=== PATIENT | female | born 1970 | race Caucasian/White ===

== ENCOUNTER 2018-11-20 03:43 | Outpatient (CLI) | payer BC, SELFPAY ==
--- NOTE | 2018-11-20 09:30 | DI.MAMMO_ITS ---
SYMPTOMS/DIAGNOSIS: SCREENING, Z12.31 MAMMOGRAMS: Mammograms were interpreted according to the usual protocol including computer analysis with CAD system, tomosynthesis and C view imaging. The breast tissue is heterogeneously radiodense, which lowers the sensitivity of the study. There is no dominant mass. There are no suspicious calcifications and there has been no significant interval change when compared with prior images. SUMMARY: No evidence of malignancy, category 1. Yearly screening mammography is recommended. Breast density category C. MQSA ASSESSMENT OF FINDINGS: Negative. Category 1. Patient will receive a letter notifying them of these results. Bi-RADS category C. The breasts are heterogeneously dense, which may obscure small masses.
== END 2018-11-20 04:03 ==
PROVIDERS: PCP Family Medicine; Visit Provider Nurse Practitioner Family
DX: Z12.31 Encounter for screening mammogram for malignant neoplasm of breast (principal)
CPT/HCPCS: 77063; 77067

== ENCOUNTER 2019-07-25 01:55 | Outpatient (CLI) | payer BC, SELFPAY ==
--- NOTE | 2019-07-25 08:19 | DI.US_ITS ---
EXAM: US PELVIS TRANSVAGINAL CLINICAL HISTORY: Heavy periods, L sided pelvic pain, R10.2, N92.0 TECHNIQUE: Ultrasound performed using standard protocol. COMPARISON: ABDOMEN ULTRASOUND (P) from 03/11/2015 FINDINGS: The uterus measures 12.5 centimeters long by 9.0 centimeters AP x 7.8 centimeters transverse. There are several hypoechoic masses in the uterus consistent with fibroids. The largest is in the fundus p osteriorly and measures 7.3 x 6.6 x 7.4 centimeters. There is a 1.1 x 1.2 x 1.1 centimeter submucosa l uterine fibroid. The endometrial stripe is within normal limits at 9.6 millimeters. The right ovary measures 2 x 1.1 x 1.0 centimeters. The left ovary measures 3.2 x 1.3 x 1.3 centimet ers. Ovaries are unremarkable with normal blood flow. There is no evidence of hydronephrosis. A trace amount of free fluid is seen in the cul-de-sac. Thi s is likely physiologic. IMPRESSION: Fibroid uterus.
== END 2019-07-25 02:15 ==
PROVIDERS: PCP Family Medicine; Visit Provider Nurse Practitioner Women's Health
DX: N92.0 Excessive and frequent menstruation with regular cycle (principal); R10.2 Pelvic and perineal pain; D25.9 Leiomyoma of uterus, unspecified
CPT/HCPCS: 76830; 76856

== ENCOUNTER 2019-10-04 01:53 | Outpatient (CLI) | payer BC, SELFPAY ==
[2019-10-04 09:37] LABS: Abs Immature Grans 0.01 k/cumm (0.0-0.09); Absolute Basophil Count 0.04 k/cumm (0.0-0.2); Absolute Eosinophil Count 0.05 k/cumm (0.0-0.7); Absolute Lymphocyte Count 1.88 k/cumm (1.2-3.4); Absolute Monocyte Count 0.38 k/cumm (0.11-0.7); Absolute Neutrophil Count 6.14 k/cumm (1.2-6.7); Basophils % 0.5; Eosinophils % 0.6; HCT 40.6 % (36.0-46.0); HGB 12.9 g/dL (12.0-15.5); Immature Grans % 0.1 %; Lymphocytes % 22.1; Mean Corp. HGB Concentration 31.8 g/dL (32.0-36.0); Mean Corpuscular Hemoglobin 26.7 pg (27.0-33.0); Mean Corpuscular Volume 83.9 fL (80-95); Mean Platelet Volume 8.7 fL (8.0-11.0); Monocytes % 4.5; Neutrophils % 72.2; Platelet Count 439 x1000/uL (130-400); RBC 4.84 m/cumm (4.00-5.20); RBC Distribution Width 14.5 % (11.7-14.6)
[2019-10-04 10:45] LABS: Iron 71 ug/dL (50-170); Total Iron Binding Capacity 444 ug/dL (250-450); Transferrin Sat 16 % (15-50)
[2019-10-04 11:21] LABS: ALT 19 U/L (14-59); AST 13 U/L (15-37); Albumin 3.4 g/dL (3.4-5.0); Alkaline Phosphatase 42 U/L (46-116); Anion Gap 8.2 mmol/L (3-11); BUN 13 mg/dL (7-18); Bilirubin, Total 0.5 mg/dL (0.2-1.0); CO2 27.8 mmol/L (21.0-32.0); CREATININE 0.75 mg/dL (0.55-1.02); Calcium 8.4 mg/dL (8.5-10.1); Calculated LDL 107 mg/dL (<100); Chloride 104 mmol/L (98-107); Cholesterol 166 mg/dL (<200); Ferritin 7 ng/mL (8-252); Glucose 86 mg/dL (74-106); HDL Cholesterol 46 mg/dL (40-60); Potassium 4.4 mmol/L (3.5-5.1); Sodium 140 mmol/L (136-145); Total Protein 6.6 g/dL (6.4-8.2); Triglyceride 69 mg/dL (<150); Vitamin B12 545 pg/mL (193-986)
[2019-10-04 11:22] LABS: Folate > 20.0 ng/mL (8.6-20.0)
[2019-10-06 11:25] LABS: FSH 2.7 mIU/mL (See Note); LH 0.5 mIU/mL (See Note)
[2019-10-08 12:53] LABS: 25-Hydroxy D Total 46 ng/mL; 25-Hydroxy D2 <4.0 ng/mL; 25-Hydroxy D3 46 ng/mL
== END 2019-10-04 02:13 ==
PROVIDERS: PCP Family Medicine; Visit Provider Naturopath
DX: R53.83 Other fatigue (principal); D25.9 Leiomyoma of uterus, unspecified; Z13.220 Encounter for screening for lipoid disorders
CPT/HCPCS: 36415; 80053; 80061; 82306; 82607; 82728; 82746; 83001; 83002; 83540; 83550; 85025

== ENCOUNTER 2020-07-06 00:43 | Outpatient (CLI) | payer BC, SELFPAY ==
--- NOTE | 2020-07-06 07:15 | DI.US_ITS ---
EXAM: US PELVIS TRANSVAGINAL CLINICAL HISTORY: check size of uterine fibroids,DYSMENORRHEA,N94.6,D25.1,D25.0. TECHNIQUE: Transabdominal and transvaginal pelvic ultrasound was performed using standard protocol. COMPARISON: US US PELVIS TRANSVAGINAL from 07/25/2019 FINDINGS: KIDNEYS: Kidneys are symmetric in size. No evidence of renal calculi. No evidence of hydronephrosis. No renal mass or cyst identified. UTERUS: Position: Anteverted. Size: 12.6 long by 8.9 AP by 9.5 transverse cm Endometrium: 0.4 cm. Normal for patient's menstrual status. Myometrium: Uterine fibroids are present. The largest measures 7.8 x 6.9 x 8.1 cm. This compares to 7.3 x 6.6 x 7.4 cm. The previously measured submucosal fibroid measures 1.1 x 1.1 x 1.4 cm. This c ompares to 1.1 x 1.2 x 1.1 cm. Cervix: Unremarkable. OVARIES: Right: 2.8 x 1.6 x 1.6 cm Cyst or mass: Small follicular cysts. Left: 2.8 x 2.2 x 2.0 cm Cyst or mass: Small follicular cysts. DOPPLER: Color: Symmetric and uniform flow to both ovaries. No hyperemia. CUL-DE-SAC: Free fluid: None. Other: None. IMPRESSION: 1. Normal sonographic appearance of the kidneys. 2. Multiple uterine fibroids. Please see the findings above for complete details. 3. Unremarkable bilateral ovaries. DATA REPOSITORY:
== END 2020-07-06 01:03 ==
PROVIDERS: PCP Family Medicine; Visit Provider Obstetrics & Gynecology Gynecology
DX: D25.9 Leiomyoma of uterus, unspecified (principal); N94.6 Dysmenorrhea, unspecified; D25.0 Submucous leiomyoma of uterus
CPT/HCPCS: 76830; 76856

== ENCOUNTER 2020-08-09 02:59 | Outpatient (CLI) | payer BC, SELFPAY ==
[2020-08-10 19:01] LABS: COVID-19 RT-PCR UVMMC Result Negative (Negative)
== END 2020-08-09 03:19 ==
PROVIDERS: PCP Family Medicine; Visit Provider Family Medicine
DX: Z11.59 Encounter for screening for other viral diseases (principal)
CPT/HCPCS: U0003

== ENCOUNTER 2020-10-08 01:55 | Outpatient (CLI) | payer BC, SELFPAY ==
[2020-10-08 11:33] LABS: HCT 40.5 % (36.0-46.0); HGB 13.1 g/dL (11.2-15.7); MCH 28.4 pg (27.0-33.0); MCHC 32.3 % (32.0-36.0); MCV 87.7 fL (80-95); MPV 8.6 fL (8.0-11.0); Platelet Count 308 10^3/uL (130-400); RBC 4.62 10^6/uL (3.93-5.22); RDW 12.7 % (11.7-14.6); RDW-SD 40.5 fL; WBC 7.07 10^3/uL (4.4-10.8)
[2020-10-08 13:12] LABS: Anion Gap 8.4 mmol/L (3-11); CO2 27.6 mmol/L (21.0-32.0); Chloride 104 mmol/L (98-107); HCG Quant, Pregnancy 1 mIU/mL (1-3); Potassium 4.2 mmol/L (3.5-5.1); Sodium 140 mmol/L (136-145)
== END 2020-10-08 01:56 | disposition home or self-care (01) ==
LOC: LBO 01:55
PROVIDERS: Visit Provider Obstetrics & Gynecology Gynecology
DX: N93.9 Abnormal uterine and vaginal bleeding, unspecified (principal); D25.9 Leiomyoma of uterus, unspecified; Z01.818 Encounter for other preprocedural examination; Z01.812 Encounter for preprocedural laboratory examination
CPT/HCPCS: 36415; 80051; 85027; 86850; 86900; 86901; 84702

== ENCOUNTER 2020-10-08 02:35 | Outpatient (CLI) | payer BC, SELFPAY ==
[2020-10-09 13:58] LABS: COVID-19 RT-PCR UVMMC Result Negative (Negative)
== END 2020-10-08 02:36 | disposition home or self-care (01) ==
LOC: LBO 02:35
PROVIDERS: Visit Provider Obstetrics & Gynecology Gynecology
DX: Z20.822 Contact with and (suspected) exposure to COVID-19 (principal); Z01.818 Encounter for other preprocedural examination
CPT/HCPCS: U0003

== ENCOUNTER 2020-10-13 14:07 | Observation (INO) | payer BC, SELFPAY ==
[2020-10-13] VITALS (16 sets, daily range): BP systolic 85–118; BP diastolic 45–78; PULSE 67–100; RESP 12–18; TEMP 36.3–37.2; O2SAT 96–100
[2020-10-13] MEDS: Lactated Ringers 1,000 ML 125 ML IV ×4 (08:20→23:26)
[2020-10-13] MEDS: ceFAZolin 2 GM/50 ML BAG IVPB (10:40)
[2020-10-13] MEDS: Bupivacaine 0.25% Pres-Free 30 ML VIAL (10:50)
--- NOTE | 2020-10-13 11:17 | UTER_PTH ---
PATIENT: Nadia Saldaña LOC: U#:[id number] AGE/SX: 49/F ROOM: 215 RE10/13/[address]: Shayy Luis : 1970 BED: A DIS: 10/14/2020 SPEC #: [id number] RECD: 10/13/20 17:30 STATUS: JOSUE REQ #: [id number] YURIY: 10/13/20 11:[address]: Shayy Luis DEPT: Surgical Specimen RECD BY: Shakira Beltran ENTERED: 10/13/20 17:32 SP TYPE: UTER OTHR DR: Jennifer Doan APRN Tissues: 1 - UTERUS W OR W/O OVARIES(NOT TUMOR/PROLAPSE) Procedures: GROSS AND MICRO LEVEL 5 Comments: [id number]
--- NOTE | 2020-10-13 19:23 | W.PM.OP ---
Date of service: 10/13/20 Time of Service: 19:23 Operative Note Operative Note DATE OF PROCEDURE: 10/13/20 PRE-OP DIAGNOSIS: menorrhagia, fibroid uterus POST-OP DIAGNOSIS: same PROCEDURE: Laparoscopic assisted vaginal hysterectomy with bilateral salpingectomy and bladder cystoscopy SURGEON: Shayy Luis ANESTHESIA TYPE: General LMA/ETT and Spinal Refer to Anesthesia Record ESTIMATED BLOOD LOSS: 200 PATHOLOGY: other (Uterus, fallopian tubes and cervix to pathology) COMPLICATIONS: None Patient was transported to: PACU Patient's condition: stable Indications: 49yo female with a hx of menorrhagia and submucosal and intramural on pelvic ultrasound who has failed medical therapy. Findings: Enlarged uterus with solitary fibroid distorting fundus and lower uterine segment. Cecum displaced to patient's L sidewall secondary to uterus occupying posterior cul de sac. Normal appearing adnexa bilaterally. Both ureters were visible and remote from the operative field. Brisk efflux of Methylene Blue dye from both ureteral orifices noted at cystoscopy Procedure Description: Patient was taken to the operating room where she was placed in the dorsal supine position and general endotracheal anesthesia was administered without difficulty. She was then placed in the dorsal lithotomy position in [facility] stirrups with SCDs in place. She received 2 g of Ancef. After being prepped and draped in the usual sterile fashion a surgical timeout was performed. Aranda catheter was placed to gravity drainage. A bivalve speculum was placed in the vagina the anterior lip of the cervix was grasped with a single-tooth tenaculum. A Xenia uterine manipulator was inserted into the uterine cavity and the distal balloon was filled with 5cc of sterile Normal Saline. It was left in place for the laparosopic portion of the procedure. Attention was then turned to the patient's abdomen. The umbilical fold was infiltrated with quarter percent Marcaine without epinephrine. A scalpel was then used to make a 12mm skin incision in the vertical fold. Two penetrating towel clips were used to tent up the skin and through the periumbilical incision a Veres needle was introduced into the abdomen and intra-abdominal placement confirmed by a drop in the intra-abdominal pressure. Once a pneumoperitoneum was established a 12 mm Visiport was placed through the umbilical incision under direct visualization and intra-abdominal placement confirmed by use of the laparoscope. Patient was then placed in Trendelenburg position. At two sites approximately 6 cm diagonally from the umbilical incision the skin was infiltrated with quarter percent Marcaine without epinephrine, incised with a scalpel and two 5 mm lower ports were placed under direct visualization. After careful inspection of the pelvis and determining that the course of both ureters were distant from the operative site a LigaSure electrocautery device was used to sequentally clamp, cauterize and incise the left fallopian tube from from the mesosalpinx to the left uterine cornua. The left broad ligament was then sequentially clamped, cauterized and the both the left round ligament and ovarian suspensory ligament were transected and the pedicles noted to be hemostatic. The insertion of the left uterine artery/venous complex into the left lower uterine segment was clamped and cauterized in 3 contiguous locations. The Ligasure device was then used to incise the vesico-uterine peritoneum off of the lower uterine segment and retract the bladder away from the lower uterine segment. Attention was then turned to the contralateral round ligament which was clamped, cauterized and transected with the Ligasure device. This allowed access to the remaining broad ligament which was clamped, cauterized and transected in a sequential fashion. The uterine vessel complex insertions at the lower uterine segement were not as prominent as on the left lower uterine segment and were easily cauterized. Decision was made to proceed with the vaginal portion of the case. Laparoscopic instruments were removed from the ports , the pneumoperitoneum was reduced, and the area was covered with sterile drape. A weighted vaginal speculum was placed in the vagina and the anterior posterior lips of the cervix were grasped with Eagle clamps. The body of the cervix was infiltrated with 1% lidocaine with dilute Epinphrine The epithelium of the cervix was incised in a circumferential fashion using Bovie electrocautery. The posterior cul-de-sac was entered sharply and through the incision a long billed weighted speculum was placed. The left and right uterosacral ligament complexes were clamped,transected, and suture-ligated which was held long. This allowed sufficient mobilization of the vesicouterine fascia to identify a tissue plane and enter the anterior cul-de-sac sharply. Through this incision a curved [place] retractor was inserted and used to retract bladder away from the operative field. The remaining right and left broad ligaments were sequentially clamped, cauterized, and transected and the specimen was delivered and passed off of the operative field. The peritoneum was reapproximated with a pursestring suture using 2-0 Vicryl and the vaginal cuff was reapproximated in a vertical fashion with a running suture of 0 Vicryl with care taken to reapproximate the uterosacral ligament complex to the vaginal epithelium with the previously placed 0 Vicryl sutures. Instruments removed from the vagina and attention was again turned to the abdomen where a pneumoperitoneum was reestablished and the pelvis inspected using the laparoscope. The vaginal cuff was intact and hemostatic as were the other pedicles. A bladder cystoscopy was then performed using normal saline and intravenous methylene blue. The bladder was smooth walled with no intracavitary filling defects. Both ureteral orifices were patent with brisk E flux of blue dye noted from each orifice. The instruments were then removed from the port sites, the pneumoperitoneum deflated and the ports removed. The fascia of the periumbilical skin incision was closed with interrupted suture of 0 Vicryl. The skin of the port site incisions were reapproximated with a subcuticular closure of 4-0 Vicry and and covered with skin glue. Patient was placed in the dorsal supine position awakened extubated and transported recovery area in stable condition. All sponge lap needle counts correct x2.
--- NOTE | 2020-10-13 19:32 | NUR.NOTE ---
Nursing Note: 1524 pt transferred from pacu to med-surg floor via hospital bed, BP soft but will continue to monitor. belongings put into room.
[2020-10-13] MEDS: Docusate Sodium 100 MG CAP PO (19:59)
[2020-10-13] MEDS: Ketorolac 30 MG/ML VIAL IVP (20:00)
[2020-10-13] MEDS: Normal Saline Flush 10 ML SYR IV (20:01)
[2020-10-14] MEDS: Normal Saline Flush 10 ML SYR IV ×2 (01:37→13:43)
[2020-10-14] MEDS: Ketorolac 30 MG/ML VIAL IVP ×3 (01:37→13:42)
[2020-10-14 03:26] VITALS: BP 103/49; PULSE 61; RESP 17; TEMP 38; O2SAT 97
[2020-10-14 03:48] VITALS: TEMP 36.6
[2020-10-14 03:50] VITALS: BP 100/60
[2020-10-14] MEDS: Lactated Ringers 1,000 ML 125 ML IV (06:20)
[2020-10-14 07:05] LABS: HCT 25.7 % (36.0-46.0); HGB 8.5 g/dL (11.2-15.7); MCH 28.4 pg (27.0-33.0); MCHC 33.1 % (32.0-36.0); MPV 9.2 fL (8.0-11.0); Platelet Count 246 10^3/uL (130-400); RBC 2.99 10^6/uL (3.93-5.22); RDW-SD 40.5 fL; WBC 9.03 10^3/uL (4.4-10.8)
[2020-10-14 07:32] VITALS: BP 100/63; PULSE 74; RESP 22; TEMP 37.4; O2SAT 97
[2020-10-14] MEDS: Docusate Sodium 100 MG CAP PO (07:55)
--- NOTE | 2020-10-14 09:53 | PDOC.CMIN ---
- If Service Date Differs Date of service: 10/14/20 Time of Service: 09:53 Care Management Initial Assess REASON FOR HOSPITALIZATION:: Laparoscopic vaginal hysterectomy PAST MEDICAL HISTORY/PAST SURGICAL HISTORY:: Medical History (Updated 10/05/20 @ 17:19 by Shayy Luis MD). Abnormal uterine bleeding (AUB). Dairy product intolerance. Dysmenorrhea. 07/2019. For several months. Will begin continuous active OCPs. Encounter for pre-operative examination. Fibroid uterus. 07/2019 7 cm fundal fibroid. Small submucosal fibroid. Surgical History (Updated 06/05/18 @ 14:33 by [employer] [place]). Tonsillectomy (~1990) PREVIOUS FUNCTIONAL STATUS/SOCIAL/FAMILY SUPPORTS:: Nadia lives in a single family home in [place] with her Steven and 2 daughters. 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 Nadia is independent at baseline and does not receive any community services. CURRENT FUNCTIONAL STATUS:: Nadia was sitting on her bed, fully dressed, when CM met with her. She was pleasant and smiling and announced that she was going home. She asked CM to check with her pharmacy to see if her prescription had been sent over and CM informed her that it had been sent and was ready for pickup. Nadia denied the need for any services. ADVANCE DIRECTIVES:: none on file Has patient been provided with info about the portal/API?: Yes Did the patient sign up for the portal?: Yes (previously) CODE STATUS:: Full Code INSURANCE COVERAGE / FINANCIAL ISSUES:: BS CURRENT HOME/COMMUNITY SERVICES/EQUIPMENT:: Sharon lives in [place], [place] with her Brad. They have 2 children. 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 POTENTIAL DISCHARGE NEEDS:: Follow up with [facility], PCP and discharge plan of care PATIENT/FAMILY EDUCATION NEEDS:: Discharge plan, limitations, follow up plan, Ask Me Three TRANSPORTATION:: via private vehicle with PLAN:: Sharon will be discharged home with no new services. She will follow up with her PCP, [facility] and discharge plan of care and transport with her .
--- NOTE | 2020-10-14 11:11 | W.PM.DS.N ---
Date of service: 10/14/20 Time of Service: 11:13 DS: Diagnosis Discharge Diagnosis (1) History of laparoscopic-assisted vaginal hysterectomy: Status: Acute (2) Hx of bilateral salpingectomy: Status: Acute Discharge Plan Disposition Patient Disposition: HOME Condition: Improving Discharge Details Reason For Visit: LAPAROSCOPIC ASSISTED VAGINAL HYSTERECTOMY WITH SA Admit Date/Time: 10/13/20 14:07 Admit Provider: Shayy Luis Attending Provider: Shayy Luis Primary Care Provider: Jennifer Doan Hospital Course Hospital Course: Patient was admitted the morning of surgery and underwent the above-stated procedure without complications. She was discharged home on postop day #1 tolerating a regular diet voiding spontaneously. Her pain was controlled with nonsteroidal anti-inflammatories. Pathology is currently pending. The plan is to have the patient follow-up in 2 weeks for discussion regarding pathology results. I will offer her prescription for limited number of Percocet in addition to encouraging her to use nonsteroidal anti-inflammatories while at home. Home Meds and New Rx's Prescriptions: No Action cholecalciferol (vitamin D3) 4,000 unit capsule 4,000 unit PO DAILY RF: 0 Probiotic 15 billion cell capsule, sprinkle 1 cap PO DAILY RF: 0 Daily Multiple 1 EACH tablet 1 tab-cap PO DAILY RF: 0 oxycodone-acetaminophen [Percocet] 5-325 mg tablet 1 tab PO Q6H MDD 4 PRN (Reason: pain) Qty: 5 RF: 0 Discharge Instructions Instructions: Laparoscopic Hysterectomy (DC) Additional Instructions: No driving until you follow-up appointment in 2 weeks. Stand Alone Forms: [facility] Post Gynecology Surgery, Nursing Discharge Form Referrals: Shayy Luis MD [ [facility] STAFF PHYSICIAN] - 11/02/20 2:40 pm Activity:: Activity as Tolerated Equipment/Supplies:: No Equipment Needed Diet:: As Tolerated Discharge Orders Discharge Orders: Discharge Order (Routine); Ordered 10/14/20 Ordered By: Shayy Luis DS: Summary Time Spent with Patient providing and/or coordinating discharge services: Less than 30 minutes Status at Discharge Functional status at discharge: independent ambulation Overall status at discharge: patient is back to baseline Mental Status: mental status grossly normal Speech and Movement: speech and movement normal Mood: congruent mood Affect: normal affect Exam Const General: no acute distress Nutritional Appearance: average body habitus Orientation: alert, awake and oriented x3 Neck Neck: normal visual inspection Resp Effort & Inspection: normal respiratory effort Auscultation: clear to auscultation bilaterally Cardio Rate: regular rate Rhythm: regular rhythm GI Inspection: scar (Trocar sites clean dry and intact, skin glue in place small amount of ecchy) Palpation: soft, no masses and nontender General: deferred Skin General skin exam: no rashes or lesions noted Extrem General: normal to inspection and full ROM Psych Appearance: grossly normal Mental Status: mental status grossly normal Speech and Movement: speech and movement normal Mood: congruent mood Affect: normal affect Attitude: cooperative Thought Process: normal Thought Content: normal Insight: insight good Judgment: judgment good DS: Data Vitals/I&O Vitals and I&O: Vital Signs Temperature 99.3 F 10/14/20 07:32 Temperature Source Tympanic 10/14/20 07:32 Pulse 74 10/14/20 07:32 Pulse Rhythm Regular 10/14/20 07:55 Respiratory Rate 22 10/14/20 07:32 Respiratory Effort Non-Labored 10/14/20 07:55 Respiratory Depth Normal 10/14/20 07:55 Respiratory Pattern Normal 10/14/20 07:55 Blood Pressure 100/63 10/14/20 07:32 Pulse Oximetry 97 10/14/20 07:32 Respiratory End-tidal CO2 45 10/13/20 15:05 Oxygen Delivery Method Room Air 10/14/20 07:32 Oxygen Flow Rate 0 10/14/20 07:32 Pain Level 2 10/14/20 07:32 Comment 10/14/20 03:50 Intake & Output 10/13/20 10/13/20 10/14/20 11:59 23:59 11:59 Intake Total 50 2458.167 2409.167 / 2459.167 2291.667 / 2291.667 Output Total 1050 / 1050 1250 / 1250 Balance 50 14086125.028 5708.167 / 7710.053 2320.667 / 1041.667 Weight 121 lb 7.595 oz Intake: IV 19784118.904 6058.167 / 9278.856 0523.667 / 1811.667 Oral 480 / 480 480 / 480 Output: Urine 850 / 850 1250 / 1250 Estimated Blood Loss 200 / 200 Other: Urine Color Yellow Green Green Indigo Urine Appearance Clear Clear Clear Comment Pale blue urine light blue color in the output. Voiding Methods Toilet Data Completed and Pending Labs on day of discharge: Labs from last 24 hours 10/14/20 06:25 WBC 9.03 RBC 2.99 L Hgb 8.5 L Hct 25.7 L MCV 86.0 MCH 28.4 MCHC 33.1 RDW 13.0 Plt Count 246 MPV 9.2 PFSH Medical History Abnormal uterine bleeding (AUB) Dairy product intolerance Dysmenorrhea 07/2019. For several months. Will begin continuous active OCPs. Encounter for pre-operative examination Fibroid uterus 07/2019 7 cm fundal fibroid. Small submucosal fibroid. Surgical History (Updated 10/14/20 @ 11:15 by Shayy Luis MD) History of laparoscopic-assisted vaginal hysterectomy Hx of bilateral salpingectomy Tonsillectomy (~1990) Family History Father Prostate cancer Mother COPD (chronic obstructive pulmonary disease) Social History (Updated 08/06/19 @ 16:21 by Shayy Luis MD) Smoking/Tobacco Use Status: Never Smoking risk assessment performed?: Yes Alcohol Intake: current Alcohol Intake frequency: a few times a week Alcohol type: wine Drug use: Never Substance use type: does not use Housing: other Details: DwayneCarmen Harris-16yo, Misty-13yo Number of Children: 2 Education Level: college Details: BS in biology 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
[2020-10-14 11:21] VITALS: BP 106/61; PULSE 80; RESP 19; TEMP 37.2; O2SAT 99
--- NOTE | 2020-10-14 15:13 | CHAPLAIN ---
I had a brief visit with Nadia. She told me that she and her were by Fr. Jael Hedrick, the original [facility] director of corporate sales here. Nadia said she will likely be discharged today.
--- NOTE | 2020-10-14 17:53 | CMDISCH_ITS ---
- If Service Date Differs Date of service: 10/14/20 Time of Service: 17:53 LACE Index Scoring Tool - Questions: Length of Stay (in days): 1 Acuity (Admit via E.D.?): No E.D. Visits: 0 - Answers: Total Score: 1 Risk of Readmission: Low Risk Care Management Discharge Reason for Hospitalization: Laparoscopic vaginal hysterectomy Discharge Plan: Sharon will be discharged home with no new services. She will follow up with her PCP, TECHNICAL WRITING LEAD/MGR and discharge plan of care and transport with her Patient/Family Education Needs: Discharge plan, limitations, follow up plan, Ask Me Three
== END 2020-10-14 15:28 | disposition home or self-care (01) ==
LOC: MS 15:47
PROVIDERS: Admitting Provider Obstetrics & Gynecology Gynecology; Visit Provider Obstetrics & Gynecology Gynecology
PROC: 0UT9FZZ Resection of Uterus, Via Natural or Artificial Opening With Percutaneous Endoscopic Assistance (ICD-10-PCS; CPT 58554; principal; 2020-10-13 09:00)
DX: D25.9 Leiomyoma of uterus, unspecified (principal); N92.0 Excessive and frequent menstruation with regular cycle
CPT/HCPCS: 58554; 52000; 36415; 85027; NC; 88307; G0378; J0690; J1100; J1885; J2001; J2250; J2405; J2704; J3010

== ENCOUNTER 2021-01-26 01:26 | Outpatient (CLI) | payer BC, SELFPAY ==
--- NOTE | 2021-01-26 08:00 | DI.MAMMO_ITS ---
Exam(s) MAMMO SCREENING EXAM: MAMMO SCREENING CLINICAL HISTORY: screening, Z12.39 TECHNIQUE: Bilateral full field digital CC and MLO mammographic images were obtained with 3D tomosyn thesis and utilizing computer aided detection (CAD). COMPARISON: Available for comparison. FINDINGS: Masses/Architectural Distortion: None seen. Microcalcifications: No suspicious pleomorphic-type are seen. Skin Thickening/Nipple Retraction: None. IMPRESSION: 1. No significant interval change with no specific features of malignancy noted. 2. Unless there is more urgent need, screening mammography is recommended, as per [employer] guidelines. BI-RADS Category 1 - Negative Breast Density - Category C - Heterogeneously dense Breast density category C or D implies that the patient has dense breast tissue. Dense breast tissue is very common and is not abnormal but dense breast tissue can make it harder to find cancer on a ma mmogram. Also, dense breast tissue may increase their breast cancer risk. This information about the result of the mammogram report was provided to the patient to raise their awareness. Use this report when you speak with the patient about their risks for breast cancer, which includes their family hist ory. At that time, you may recommend for more screening tests (Ultrasound or MRI) as they might be us eful based on their risk. A negative radiographic report should not delay biopsy if a dominant or clinically suspicious mass is present. Up to ten percent of cancers are not identified on mammography. A negative report may reinforce clinical impression. Adenosis and dense breasts may obscure an underlying neoplasm. False positive reports average 6 to 10%. Patient will receive a letter notifying them of these results.
== END 2021-01-26 01:46 ==
PROVIDERS: Visit Provider Obstetrics & Gynecology Gynecology
DX: Z12.31 Encounter for screening mammogram for malignant neoplasm of breast (principal)
CPT/HCPCS: 77063; 77067

== ENCOUNTER 2021-12-21 01:14 | Outpatient (CLI) | payer BC, SELFPAY ==
[2021-12-21 12:31] LABS: HCT 42.4 % (36.0-46.0); HGB 13.7 g/dL (11.2-15.7)
[2021-12-21 12:53] LABS: Iron 168 ug/dL (50-170); Total Iron Binding Capacity 326 ug/dL (250-450); Transferrin Sat 52 % (15-50)
[2021-12-21 12:59] LABS: Ferritin 32 ng/mL (8-252)
== END 2021-12-21 01:15 | disposition home or self-care (01) ==
LOC: LOS 01:14
DX: D50.9 Iron deficiency anemia, unspecified (principal)
CPT/HCPCS: 36415; 82728; 83540; 83550; 85014; 85018

== ENCOUNTER 2022-09-13 01:19 | Outpatient (CLI) | payer BC, SELFPAY ==
--- NOTE | 2022-09-13 15:15 | DI.MAMMO_ITS ---
Exam(s) MAMMO SCREENING EXAM: MAMMO SCREENING CLINICAL HISTORY: screening TECHNIQUE: Mammograms were interpreted according to the usual protocol including computer analysis w [employer] CAD system, tomosynthesis and C-view imaging. COMPARISON: 2013 through 2020 FINDINGS: The breasts are composed of heterogeneously dense fibroglandular densities, Breast Density category C . No suspicious masses or suspicious microcalcifications are seen. Multiple scattered punctate, benign -appearing calcifications are noted bilaterally. No skin thickening or abnormal axillary lymph nodes are seen. There has been no significant change from prior exams. IMPRESSION: BI-RADS Cat 2 - Benign Findings Yearly screening mammography is recommended. Breast Density Category C, heterogeneously Dense. The mammogram demonstrates the patient's breast tissue is dense. Dense breast tissue is very common a nd is not abnormal but dense breast tissue can make it harder to find cancer on a mammogram. Also, de nse breast tissue may increase breast cancer risk. This information about the result of the mammogram report was provided to the patient to raise their awareness. Use this report when you speak with the patient about their risks for breast cancer, which includes their family history. At that time, you may recommend additional screening tests (Ultrasound or MRI) as they might be useful based on their r isk. A negative radiographic report should not delay biopsy if a dominant or clinically suspicious mass is present. Up to ten percent of cancers are not identified on mammography. A negative report may reinforce clinical impression. Adenosis and dense breasts may obscure an underlying neoplasm. False positive reports average 6 to 10%.
== END 2022-09-13 01:39 ==
LOC: DI 01:20
PROVIDERS: PCP Nurse Practitioner Family; Visit Provider Obstetrics & Gynecology
DX: Z12.31 Encounter for screening mammogram for malignant neoplasm of breast (principal)
CPT/HCPCS: 77063; 77067

== ENCOUNTER 2022-12-13 02:57 | Outpatient (CLI) | payer BC, SELFPAY ==
[2022-12-13 08:46] LABS: HCT 45.7 % (36.0-46.0); HGB 15.2 g/dL (11.2-15.7); MCH 28.8 pg (27.0-33.0); MCHC 33.3 % (32.0-36.0); MCV 87 fL (80-95); MPV 8.4 fL (8.0-11.0); Platelet Count 269 10^3/uL (130-400); RBC 5.27 10^6/uL (3.93-5.22); RDW 12.4 % (11.7-14.6); RDW-SD 39.6 fL; WBC 6.16 10^3/uL (4.4-10.8)
[2022-12-13 09:29] LABS: Anion Gap 7.5 mmol/L (3-11); BUN 13 mg/dL (7-18); CO2 29.5 mmol/L (21.0-32.0); CREATININE 0.9 mg/dL (0.55-1.02); Calcium 9.1 mg/dL (8.5-10.1); Calculated LDL 129 mg/dL (<100); Chloride 102 mmol/L (98-107); Cholesterol 209 mg/dL (<200); Ferritin 48 ng/mL (8-252); Glucose 93 mg/dL (74-106); HDL Cholesterol 70 mg/dL (40-60); Potassium 3.9 mmol/L (3.5-5.1); Sodium 139 mmol/L (136-145); Triglyceride 54 mg/dL (<150)
[2022-12-13 09:37] LABS: Vitamin D 25 Total 32.9 ng/mL (30-100)
[2022-12-13 09:49] LABS: Folate > 20.0 ng/mL (8.6-20.0)
[2022-12-13 09:52] LABS: Iron 121 ug/dL (50-170); Total Iron Binding Capacity 310 ug/dL (250-450)
== END 2022-12-13 02:58 | disposition home or self-care (01) ==
LOC: LBO 02:57
PROVIDERS: PCP Nurse Practitioner Family; Visit Provider Nurse Practitioner Family
DX: D50.9 Iron deficiency anemia, unspecified (principal); K90.9 Intestinal malabsorption, unspecified; Z13.220 Encounter for screening for lipoid disorders; Z13.1 Encounter for screening for diabetes mellitus
CPT/HCPCS: 36415; 80048; 80061; 82306; 85027; 82728; 82746; 83540; 83550

== ENCOUNTER 2023-02-16 01:29 | Outpatient (CLI) | payer BC, SELFPAY ==
[2023-02-19 11:40] LABS: Lyme Ab w Rflx to Lyme Confirm Negative (Negative)
[2023-02-20 17:34] LABS: Anaplasma phagocytophilum Negative (Negative); B. miyamotoi PCR Negative (Negative); Babesia divergens/MO-1 Negative (Negative); Babesia duncani Negative (Negative); Babesia microti Negative (Negative); Ehrlichia chaffeensis Negative (Negative); Ehrlichia ewingii/canis Negative (Negative); Ehrlichia muris eauclairensis Negative (Negative)
== END 2023-02-16 01:30 | disposition home or self-care (01) ==
PROVIDERS: PCP Nurse Practitioner Family; Visit Provider Nurse Practitioner Family
DX: M25.50 Pain in unspecified joint (principal); D50.9 Iron deficiency anemia, unspecified; E73.9 Lactose intolerance, unspecified
CPT/HCPCS: 36415; 87798; 86618

== ENCOUNTER → 2023-05-31 00:53 | Outpatient (CLI) | payer BC, SELFPAY ==
--- NOTE | 2023-05-31 10:00 | DI.RAD_ITS ---
Exam(s) XR SACRUM COCCYX XR LUMBAR SPINE COMPLETE EXAM: XR LUMBAR SPINE COMPLETE and XR sacrum coccyx CLINICAL HISTORY: no improvement with PT, low back pain,m54.50. TECHNIQUE: 2D digital imaging was performed of the sacrum/coccyx and lumbar spine. Nine images were obtained. AP, lateral, right oblique, left oblique and L5-S1 spot views were obtained. COMPARISON: No priors for comparison. FINDINGS: BONES: No fracture or destructive lesion. Endplate osteophytes are seen at multiple levels of the lum bar spine. There are degenerative changes seen in the facet joints. DISKS: There is disc space narrowing at L2-1 L2 and L5-S1. ALIGNMENT: Lumbar spinal alignment is within normal limits. No spondylolysis or spondylolisthesis. T he sacroiliac joints show no evidence of erosions or ankylosis. Mild degenerative changes are seen i n the sacroiliac joints. SOFT TISSUE: Surgical clips are seen in the pelvis. IMPRESSION: 1. No acute fracture or subluxation. 2. Mild degenerative changes in the lumbar spine and sacroiliac joints. DATA REPOSITORY: RADIATION DOSE DELIVERED:
--- NOTE | 2023-05-31 10:05 | DI.RAD_ITS ---
Exam(s) XR HAND RT COMPLETE EXAM: XR HAND RT COMPLETE CLINICAL HISTORY: no improvement with PT,pain, m25.50. TECHNIQUE: 2D digital imaging was performed of the right hand. Three images were obtained. AP, late ral and oblique views were obtained. COMPARISON: CR RIGHT INDEX FINGER from 07/19/2011 FINDINGS: BONES: No acute fracture is present. No bony destructive lesion is seen. JOINTS: No dislocation present. The joint spaces are well maintained. SOFT TISSUE: Normal. IMPRESSION: Unremarkable radiographs of the right hand. DATA REPOSITORY: RADIATION DOSE DELIVERED:
== END ==
PROVIDERS: PCP Nurse Practitioner Family; Visit Provider Nurse Practitioner Family
DX: M51.36 Other intervertebral disc degeneration, lumbar region (principal); M25.511 Pain in right shoulder
CPT/HCPCS: 72110; 72220; 73130

== ENCOUNTER → 2023-06-28 01:06 | Outpatient (CLI) | payer BC, SELFPAY ==
--- NOTE | 2023-06-28 13:58 | DI.MRI_ITS ---
Exam(s) MR LUMBAR SPINE WO EXAM: MR LUMBAR SPINE WO CLINICAL HISTORY: no improvement with PT M54.50 LOW BACK PAIN. TECHNIQUE: Multiplanar multisequence MRI of the Lumbar spine was performed. COMPARISON: CR XR LUMBAR SPINE COMPLETE from 05/31/2023 CR XR SACRUM COCCYX from 05/31/2023 FINDINGS: Conus medullaris is at normal level. There is no evidence of conus mass nor subjacent clumping of in trathecal nerve roots to suggest arachnoiditis. The distal thecal sac appears unremarkable.There is no evidence of Tarlov intrasacral cysts nor other significant findings within the sacral canal Bones:There are no fractures nor ominous osseous lesions in the lumbar vertebral bodies and visualize d sacrum. The small intraosseous hemangioma noted in the S2 segment. With respect to the individual levels... T12-L1: Unremarkable L1-2: This level exhibits disc space narrowing anteriorly; less so posteriorly. However, there is po sterior annular bulging and a superimposed central-left paracentral disc protrusion at this level whi ch extends posteriorly 3 mm and is approximately 1 cm wide. This indents the anterior thecal sac. T he actual osseous dimensions of the canal are within normal limits and this disc protrusion does not extend into the exiting neural foramen on either side. There is no foraminal stenosis on either side at this level. Facet joints appear unremarkable. There are anterior osteophytes evident at this le king and Modic type 1 sub endplate marrow edema signal is noted anteriorly at this level in the L1 and L2 vertebral bodies. L2-3: This level exhibits no significant disc space narrowing. There is asymmetric left-sided annula r bulging in the floor of the exiting left neural foramen at this level. There is no prominent disc herniation and the exiting neural foramen is not significantly narrowed on either side at this level and there is also no evidence of central canal stenosis. Facet joints unremarkable. L3-4: Normal disc height and signal. There is mild asymmetric left of center annular bulging at this level without a dominant disc herniation. Central canal dimensions are lower normal. There is no s ignificant foraminal stenosis at this level. Facet joints unremarkable. L4-5: This level exhibits normal disc height and signal. There is symmetrical annular bulging at thi s level which mildly indents the anterior thecal sac at this level. There is no prominent disc herni ation. Central canal dimensions are lower normal. There is mild annular bulging in the floor of the exiting left neural foramen but no foraminal stenosis on either side at this level. Also no promine nt facet arthropathy. L5-S1: This level exhibits chronic advanced uniform disc space narrowing some Modic type sub endplate marrow changes noted at this level. There is broad relatively symmetrical annular bulging at this l evel which flattens the anterior thecal sac. Central canal dimensions are lower normal. With regard s to the exiting neural foramina, there is annular bulging into the floor of the exiting neural selena victor hugo bilaterally with mild-moderate foraminal stenosis bilaterally at this level. There is mild bilat eral facet arthropathy. Soft tissues: paraspinal soft tissues appear unremarkable. IMPRESSION: 1. Multilevel findings as described individually above. 2. Central-left paracentral disc herniation at L1-2 level; an element of bilateral foraminal stenosis at L5-S1 level; with other findings as above. 3. There is no prominent central canal stenosis. DATA REPOSITORY:
--- NOTE | 2023-06-28 13:58 | DI.MRI_ITS ---
Exam(s) MR UPPER EXTREMITY RT WO EXAM: MR UPPER EXTREMITY RT WO CLINICAL HISTORY: increased pain, no improvement with PT M79.641 PAIN RT HAND. TECHNIQUE: Multiplanar multisequence MRI was performed. CONTRAST MATERIAL: None COMPARISON: Plain films 31 May 2012 FINDINGS: Bones/joints: There is no fracture or contusion. The radiocarpal, intercarpal and carpometacarpal [place] nt spaces are preserved. There are no erosive changes seen. A small cystic area is noted in the 3rd metacarpal head, of doubtful clinical significance. There is no appreciable joint effusion. Ligaments: The TFCC is grossly intact. Both the scapholunate and lunotriquetral ligaments are grossl y intact. Musculoskeletal Structures: The visualized tendons are intact. There is no muscle atrophy. There are no muscular strains seen. The visualized median nerve appears to be within normal limits and is normally located within the car pal tunnel. No abnormal edema within the carpal tunnel. IMPRESSION: Unremarkable MRI of the Right hand.. DATA REPOSITORY:
== END ==
PROVIDERS: PCP Nurse Practitioner Family; Visit Provider Nurse Practitioner Family
DX: M51.26 Other intervertebral disc displacement, lumbar region (principal); M99.63 Osseous and subluxation stenosis of intervertebral foramina of lumbar region; M79.641 Pain in right hand
CPT/HCPCS: 72148; 73218

== ENCOUNTER → 2023-11-28 04:10 | Outpatient (CLI) | payer BC, SELFPAY ==
--- NOTE | 2023-11-28 08:30 | DI.MAMMO_ITS ---
Exam(s) MAMMO SCREENING EXAM: MAMMO SCREENING CLINICAL HISTORY: screening,z12.39. TECHNIQUE: Bilateral full field digital CC and MLO mammographic images were obtained with 3D tomosyn thesis and utilizing computer aided detection (CAD). COMPARISON: Prior mammograms were reviewed. FINDINGS: There has been no significant change in the appearance and distribution of the fibroglandular tissue which is again noted be moderately dense, this somewhat decreasing the sensitivity of the mammogram f or finding hidden underlying lesions. There are numerous punctate benign-appearing microcalcifications in the areas of fibroglandular densi ty in both breasts. There are no new spiculated masses nor malignant appearing microcalcification groups. There is no significant architectural distortion nor skin thickening-retraction. IMPRESSION: Stable benign findings. No radiographic evidence of malignancy. BI-RADS Category 2 - Benign Findings Breast Density - Category C - Heterogeneously dense Breast density Category C or D implies that the patient has dense breast tissue. Dense breast tissue can make it harder to find cancer on a mammogram. Dense breast tissue is also associated with an incr eased risk of breast cancer. This information about the result of the mammogram report was provided to the patient to raise their awareness. Use this report when you speak with the patient about their risks for breast cancer, which includes their family history. At that time, you may recommend additional screening tests (Ultrasoun d or MRI) as these tests may add significant information. A negative radiographic report should not delay biopsy if a dominant or clinically suspicious mass is present. Up to ten percent of cancers are not identified on mammography. A negative report may reinforce clinical impression. Adenosis and dense breasts may obscure an underlying neoplasm. False positive reports average 6 to 10%. Patient will receive a letter notifying them of these results.
== END ==
PROVIDERS: PCP Nurse Practitioner Family; Visit Provider Nurse Practitioner Family
DX: Z12.31 Encounter for screening mammogram for malignant neoplasm of breast (principal); R92.323 Mammographic fibroglandular density, bilateral breasts
CPT/HCPCS: 77063; 77067

== ENCOUNTER 2024-01-19 10:52 | Outpatient (REF) | payer BC, SELFPAY | END 2024-01-19 10:53 | disposition home or self-care (01) | LOC: LBN 10:52 | PROVIDERS: PCP Nurse Practitioner Family; Visit Provider Physician Assistant | DX: J02.9 Acute pharyngitis, unspecified (principal) | CPT/HCPCS: 87070 ==

== ENCOUNTER 2024-01-22 05:01 | Outpatient (CLI) | payer BC, SELFPAY ==
[2024-01-23 11:50] LABS: Lyme Ab w Rflx to Lyme Confirm Negative (Negative)
[2024-01-25 13:11] LABS: Anaplasma phagocytophilum Negative (Negative); B. miyamotoi PCR Negative (Negative); Babesia divergens/MO-1 Negative (Negative); Babesia duncani Negative (Negative); Babesia microti Negative (Negative); Ehrlichia chaffeensis Negative (Negative); Ehrlichia ewingii/canis Negative (Negative); Ehrlichia muris eauclairensis Negative (Negative)
== END 2024-01-22 05:02 | disposition home or self-care (01) ==
PROVIDERS: PCP Nurse Practitioner Family; Visit Provider Nurse Practitioner Family
DX: M25.59 Pain in other specified joint (principal)
CPT/HCPCS: 36415; 87798; 86618

== ENCOUNTER 2024-11-25 21:24 | Outpatient (REF) | payer BC, SELFPAY ==
[2024-11-25 21:40] LABS: HCT 42.5 % (36.0-46.0); HGB 14.3 g/dL (11.2-15.7); MCH 29.3 pg (27.0-33.0); MCHC 33.6 % (32.0-36.0); MCV 87 fL (80-95); MPV 9.3 fL (8.0-11.0); Platelet Count 294 10^3/uL (130-400); RBC 4.88 10^6/uL (3.93-5.22); RDW 12.2 % (11.7-14.6); WBC 7.02 10^3/uL (4.4-10.8)
[2024-11-25 22:00] LABS: ALT 20 U/L (14-59); AST 15 U/L (15-37); Albumin 4.2 g/dL (3.4-5.0); Alkaline Phosphatase 71 U/L (46-116); Anion Gap 10.9 mmol/L (3-11); BUN 14 mg/dL (7-18); Bilirubin, Total 0.5 mg/dL (0.2-1.0); CO2 27.1 mmol/L (21.0-32.0); CREATININE 0.8 mg/dL (0.55-1.02); Calcium 9.5 mg/dL (8.5-10.1); Calculated LDL 93 mg/dL (<100); Chloride 105 mmol/L (98-107); Cholesterol 187 mg/dL (<200); Estimated GFR 88.05 (mL/min/1.73m2); Glucose 90 mg/dL (74-106); HDL Cholesterol 77 mg/dL (>or=50); Sodium 143 mmol/L (136-145); Total Protein 7.1 g/dL (6.4-8.2); Triglyceride 88 mg/dL (<150)
== END 2024-11-25 21:25 | disposition home or self-care (01) ==
LOC: LBN 21:24
PROVIDERS: PCP Nurse Practitioner Family; Visit Provider Nurse Practitioner Family
DX: D50.9 Iron deficiency anemia, unspecified (principal); Z13.220 Encounter for screening for lipoid disorders; R53.83 Other fatigue; Z78.0 Asymptomatic menopausal state
CPT/HCPCS: 80053; 80061; 85027; 84443

== ENCOUNTER 2024-11-28 00:16 | Outpatient (CLI) | payer BC, SELFPAY ==
--- NOTE | 2024-11-28 12:04 | DI.MAMMO_ITS ---
Exam(s) MAMMO SCREENING EXAM: MAMMO SCREENING CLINICAL HISTORY: screening TECHNIQUE: Mammograms were interpreted according to the usual protocol including computer analysis w [id number] CAD system, tomosynthesis and C-view imaging. COMPARISON: 2014 through 2023 FINDINGS: The breasts are composed of heterogeneously dense fibroglandular densities, Breast Density category C . No suspicious masses or suspicious microcalcifications are seen. Benign calcifications are again not ed bilaterally. No skin thickening or abnormal axillary lymph nodes are seen. There has been no significant change from prior exams. IMPRESSION: BI-RADS Category 2 - Benign Findings Yearly screening mammography is recommended. Breast Density Category C, heterogeneously Dense. The mammogram demonstrates the patient's breast tissue is dense. Dense breast tissue is very common a nd is not abnormal but dense breast tissue can make it harder to find cancer on a mammogram. Also, de nse breast tissue may increase breast cancer risk. This information about the result of the mammogram report was provided to the patient to raise their awareness. Use this report when you speak with the patient about their risks for breast cancer, which includes their family history. At that time, you may recommend additional screening tests (Ultrasound or MRI) as they might be useful based on their r isk. A negative radiographic report should not delay biopsy if a dominant or clinically suspicious mass is present. Up to ten percent of cancers are not identified on mammography. A negative report may reinforce clinical impression. Adenosis and dense breasts may obscure an underlying neoplasm. False positive reports average 6 to 10%.
== END 2024-11-28 00:36 ==
LOC: DI 00:16
PROVIDERS: PCP Nurse Practitioner Family; Visit Provider Obstetrics & Gynecology
DX: Z12.31 Encounter for screening mammogram for malignant neoplasm of breast (principal); R92.333 Mammographic heterogeneous density, bilateral breasts; D24.1 Benign neoplasm of right breast; D24.2 Benign neoplasm of left breast
CPT/HCPCS: 77063; 77067

== ENCOUNTER 2024-12-29 02:30 | Outpatient (CLI) | payer BC, SELFPAY ==
--- NOTE | 2024-12-29 08:15 | DI.DEXA_ITS ---
Exam(s) XR DEXA BONE DENSITY W/WO LALO EXAM: XR DEXA BONE DENSITY W/WO LALO CLINICAL HISTORY: screening for osteoporosis in postmenopausal state,z78.0 TECHNIQUE: Routine DEXA evaluation of the lumbar spine, hip, or forearm. COMPARISON: No exams were available for comparison FINDINGS: Performed on a Hologic unit. Lateral image: No compression fracture evident. Lumbar Spine total T-score: -1.3 Hip total T-score:-0.9 Independent reading at the level of the femoral neck yields T-score of -1.7 Forearm total T-score: -1.0 IMPRESSION: Bone mineral density measures in the osteopenia range. Fracture risk is moderate. Note: Any spine fracture indicates 5x risk for subsequent spine fracture and 2x risk for subsequent h ip fracture. World Health Organization criteria for BMD interpretation classify patients: Normal...... T- Score at or above -1.0 Osteopenic... T- Score between -1.0 and -2.5 Osteoporosis... T-Score at or below -2.5
== END 2024-12-29 02:50 ==
LOC: DI 02:30
PROVIDERS: PCP Nurse Practitioner Family; Visit Provider Nurse Practitioner Family
DX: Z78.0 Asymptomatic menopausal state (principal); Z13.820 Encounter for screening for osteoporosis; M85.89 Other specified disorders of bone density and structure, multiple sites
CPT/HCPCS: 77080

== ENCOUNTER 2025-05-08 08:40 | Outpatient (CLI) | payer BC, SELFPAY ==
[2025-05-11 10:35] LABS: Lyme Ab w Rflx to Lyme Confirm Negative (Negative)
== END 2025-05-08 08:41 | disposition home or self-care (01) ==
LOC: LOS 08:40
PROVIDERS: PCP Nurse Practitioner Family; Referring Provider Nurse Practitioner Family; Visit Provider Nurse Practitioner Family
DX: M25.50 Pain in unspecified joint (principal)
CPT/HCPCS: 36415; 87798; 86618

== ENCOUNTER 2025-05-21 20:47 | Outpatient (CLI) | payer BC, SELFPAY ==
[2025-05-24 21:00] LABS: B. miyamotoi PCR Negative (Negative); Babesia divergens/MO-1 Negative (Negative); Ehrlichia muris eauclairensis Negative (Negative)
== END 2025-05-21 20:48 | disposition home or self-care (01) ==
LOC: LBO 20:47
PROVIDERS: PCP Nurse Practitioner Family; Visit Provider Nurse Practitioner Family
DX: M25.50 Pain in unspecified joint (principal)
CPT/HCPCS: 36415; 87798

== ENCOUNTER 2025-06-19 13:06 | Emergency (ER) | payer BC, SELFPAY ==
[2025-06-19 13:08] VITALS: BP 115/82; PULSE 83; RESP 18; TEMP 36.8; O2SAT 98
--- NOTE | 2025-06-19 14:48 | W.ED.GENAD ---
Discharge Plan Disposition Patient Disposition: Home Condition: Stable Discharge Details Clinical Impression: Low back pain Primary Care Provider: Ray Chaudhari ED Provider: Andres Peres Home Meds and New Rx's Prescriptions: New cyclobenzaprine 5 mg tablet 5 mg PO TID PRNQty: 14 0RF No Action estradiol [Estrace] 1 mg tablet 1 mg PO DAILY Qty: 90 3RF multivitamin with iron [Daily Vites/Iron] Tablet 1 tab PO DAILY up4 Probiotics Women's 5 billion cell- 250 mg capsule 1 cap PO DAILY cholecalciferol (vitamin D3) 25 mcg (1,000 unit) capsule 25 mcg PO DAILY Discharge Instructions Instructions: Low Back Pain ED Additional Instructions: Flexeril as directed, this medication may cause drowsiness. [id number] Tylenol and/or Motrin as directed for discomfort. Cool and/or warm compresses every 2 hours for 20 minutes. Gentle massage and/or stretching as tolerated. Please watch for new or worsening symptoms and return to the ER for any concerns. Lastly, please contact your primary care provider on Sunday to discuss your ER visit and ongoing symptoms, updated outpatient MRI of the lumbar spine or referral to youth services specialist may be necessary. Discharge Data Discharge Date/Time-TO BE ENTERED AT DEPARTURE: 06/19/25 15:01 HPI General Mode of arrival: ambulatory. Date/Time Provider Initiated Documentation: 06/19/25 13:22. Limitations to Documentation: no limitations. Information obtained by: patient. History of Present Illness 54 year old F presents to the emergency department with the chief complaint of Low back pain, described as moderate, with intensity rated at 5. Quality is described as aching, and is localized to the back. Patient reports no radiation. Patient started experiencing this day(s) (2) and it has been constant. worse with movement No exacerbating factors reported . Patient notes no other symptoms.. Patient did receive the following treatments prior to arrival, none Related Data Home Medications Medication Instructions Recorded Confirmed multivitamin with iron (Daily 1 tab PO DAILY 06/20/21 06/19/25 Vites/Iron tablet) L.acid,gasseri,plant,rham-B.animalis-cran 1 cap PO DAILY 09/29/24 06/19/25 5 billion cell-250mg capsule (up4 Probiotics Women's) cholecalciferol (vitamin D3) 25 25 mcg PO DAILY 09/29/24 06/19/25 mcg (1,000 unit) capsule estradiol 1 mg tablet (Estrace) 1 mg PO DAILY #90 tabs 12/09/24 06/19/25 Held on 12/30/24. Instructions: Changed by Provider cyclobenzaprine 5 mg tablet 5 mg PO TID PRN #14 tabs 06/19/25 Previous Rx's Medication Instructions Recorded estradiol 1 mg tablet (Estrace) 1 mg PO DAILY #90 tabs 12/09/24 Held on 12/30/24. Instructions: Changed by Provider cyclobenzaprine 5 mg tablet 5 mg PO TID PRN #14 tabs 06/19/25 Allergies Allergy/AdvReac Type Severity Reaction Status Date / Time amoxicillin Allergy Intermediate Skin Rash Verified 06/19/25 13:54 dimenhydrinate (From Allergy Intermediate Skin Rash Unverified 06/19/25 13:54 Dramamine) General Stated Complaint: Orthopedic SHONDA: 3 Review of Systems Constitutional Constitutional: Denies fever(s) and Denies weakness Cardiovascular Cardiovascular: Denies chest pain and Denies dyspnea Respiratory Respiratory: Denies dyspnea Gastrointestinal Gastrointestinal: Denies abdominal pain, Denies fecal incontinence, Denies nausea and Denies vomiting Genitourinary Genitourinary: Denies dysuria and Denies urinary incontinence Musculoskeletal Musculoskeletal: Reports back pain, Denies numbness, Denies radiating pain into limb, Reports stiffness and Denies tingling Integumentary/Breasts Skin/Breast: Denies rash Neurologic Neurologic: Denies numbness, Denies tingling and Denies weakness Exam Const General: cooperative, healthy appearing, comfortable and no acute distress Orientation: alert and awake [facility] Head: normal to inspection, normocephalic and atraumatic Mouth: moist mucous membranes Eyes Conjunctivae: conjunctivae normal Neck Neck: normal visual inspection, full ROM, trachea midline and supple Resp Effort & Inspection: normal respiratory effort and able to speak in complete sentences Cardio Rate: regular rate Rhythm: regular rhythm GI Palpation: soft and nontender Back/Spine/Pelvis Back: no CVA tenderness and back tenderness Other: Skin is without erythema, ecchymosis, or obvious deformity. There is mild right paravertebral soft tissue discomfort. There is no midline discomfort. There is no left lower back discomfort. No discomfort over the SI joint. No discomfort with pelvis compression. Modified straight leg raise does reproduce back discomfort. Skin General skin exam: no rashes or lesions noted Neuro General: patient alert, patient awake, moves all extremities and no focal motor deficits Cognition: normal cognition Speech: speech normal Gait: normal gait Motor: muscle tone normal throughout and strength 5/5 throughout Sensory Exam: no sensory deficits noted Extrem General: normal to inspection, full ROM, capillary refill normal, no calf tenderness and normal gait Psych Appearance: grossly normal Mental Status: mental status grossly normal Course Vital Signs Vital signs: Vital Signs Temperature 36.8 C 06/19/25 13:08 Pulse 83 06/19/25 13:08 Respiratory Rate 18 06/19/25 13:08 Blood Pressure 115/82 06/19/25 13:08 Pulse Oximetry 98 06/19/25 13:08 Temperature 36.8 C 06/19/25 13:08 Temperature Source Oral 06/19/25 13:08 Pulse 83 06/19/25 13:08 Respiratory Rate 18 06/19/25 13:08 Blood Pressure 115/82 06/19/25 13:08 Pulse Oximetry 98 06/19/25 13:08 Oxygen Delivery Method Room Air 06/19/25 13:08 Oxygen Flow Rate 0 06/19/25 13:08 Pain Level 7 06/19/25 14:34 Medical Decision Making This is a healthy 54-year-old female who admits to what she describes as a compressed disks in her lumbar spine per MRI at least 3 years ago. Chart review reveals lumbosacral spondylosis without myelopathy. 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 Denies any obvious injury. She has noticed low back pain that has been worse first thing in the morning associated with discomfort and stiffness which does improve some once she is awake and moving. She denies any fever, IV drug use, abdominal pain, bowel or bladder incontinence, or radicular symptoms. In general she is wondering whether she simply pulled her back or if there has been progression in her previously diagnosed lumbar disc disease. Prior to Sunday she was not having any daily back discomfort. Fortunately she appears well, nontoxic, no acute distress, and no radicular symptoms. No symptoms or clinical findings to suggest cauda equina, epidural abscess, canal compression, excetra. Discussed HPI and examination in length. There is no midline tenderness and there is no traumatic event, x-ray likely a little value. Using shared decision making, will not pursue x-ray at this visit. Patient does state that her has respondeded well to muscle relaxers previously. We discussed red flag signs and symptoms to watch for. Will work on gentle stretching, massage, as she does see a chiropractor discussed [id number] Tylenol and Motrin as directed for discomfort. Will prescribe Flexeril for her to take, we did discuss that this may cause drowsiness, and she will likely only take over the weekend or at bedtime, does not plan to take it during the day unless necessary. She will contact her primary care provider on Sunday to discuss her ER visit and ongoing symptoms. If symptoms are to persist then MRI or even referral to youth services specialist could be indicated in the future. She will return to the ER immediately for new or worsening symptoms. Standard discharge and return precautions were provided. Patient understands, is agreeable to this plan, and has no additional questions or concerns upon discharge. This documentation was generated using Digital Trowel dictation system, please disregard any oddities of phrase or misspellings. Medical Records Medical records reviewed: Yes I reviewed the patient's medical records. PFSH All Active Problems Symptomatic postsurgical menopause (Acute) Begin estrogen hormone replacement therapy Fatigue (Acute) Lumbosacral spondylosis without myelopathy (Acute) Right hand pain (Acute) 06/28/23 MRI shows small cystic lesion at 3rd metacarpal head Low back pain (Acute) Arthralgia (Acute) COVID-19 (Acute ~03/01/22) Neuropathy (Acute) Hives due to cold exposure (Acute) Iron deficiency anemia (Acute) Hx of bilateral salpingectomy (Acute) History of laparoscopic-assisted vaginal hysterectomy (Acute) Bilateral ovaries retained. Needs pelvic evaluation yearly Dairy product intolerance (Acute) Medical History Abnormal uterine bleeding (AUB) Dysmenorrhea 07/2019. For several months. Will begin continuous active OCPs. Fibroid uterus 07/2019 7 cm fundal fibroid. Small submucosal fibroid. Surgical History H/O: hysterectomy Tonsillectomy (~1990) Family History Father Prostate cancer Mother COPD (chronic obstructive pulmonary disease) Other Charcot Krysten Tooth muscular atrophy Santana-Danlos syndrome Heart disease Social History Smoking/Tobacco Use Status: Never Second Hand Exposure: Yes Smoking risk assessment performed?: Yes Alcohol Intake: current Alcohol Intake frequency: a few times a week Alcohol type: wine Drug use: Never Substance use type: does not use Caregiver/Support person: No Household members: spouse and children Housing: house Number of Children: 2 Communication Needs: None Education Level: college Details: BS in biology Do you need help understanding health information?: Never 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 [employer] Pets and animals: Yes Pets and animals: cat(s), dog(s) and farm animals Sexually active: Yes Do you think of yourself as: straight/heterosexual Current gender identity: female What is your relationship status?: How often do you talk on the phone with friends or family?: three or more times per week How often do you get together with friends or relatives?: three or more times per week How often do you attend congregational or yarsani services?: 1-3 times per year Do you belong to any clubs or organized social groups?: no Panel score (0-1 are the most socially isolated patients): 2 What type of physical activity do you participate in: walking Duration: < 15 minutes/day Frequency: 1-2 times per week Lainey/Holiness: Worship Special lainey needs: No Seatbelt use: always Helmet use: No Drive intox or ride w/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
[2025-06-19 15:00] VITALS: BP 106/65; PULSE 68; RESP 18; O2SAT 98
== END 2025-06-19 15:01 | disposition home or self-care (01) ==
PROVIDERS: Emergency Provider Physician Assistant; PCP Nurse Practitioner Family
DX: M54.50 Low back pain, unspecified (principal)
CPT/HCPCS: 99283 ×2